=== PATIENT | male | born 1945 | race Caucasian/White ===

== ENCOUNTER 2024-02-12 20:33 | Emergency (ER) | payer MEDICARE, SELFPAY ==
--- NOTE | ~2024-02-12 | CT_ITS ---
EXAMINATION: CT cervical spine wo con DATE: 02/12/2024 21:00 INDICATION: fall TECHNIQUE: Computed tomography (CT) of the cervical spine was performed with 1 intravenous contrast. Automated exposure control and iterative reconstruction technique were employed. The dose-length prod uct was 404.78 mGy-cm. COMPARISON: None. FINDINGS: Vertebral Body Alignment: Intact. i 2 mm retrolisthesis at C3-4, likely on a degenerative basis Craniocervical and atlantoaxial alignment: Moderate degenerative change. Alignment intact. Osseous structures/fracture: No evidence of a lytic or blastic process in the visualized spine. No e vidence of acute fracture. Cervical soft tissues: The paraspinal soft tissues planes are maintained. Degenerative changes: Degenerative changes, without severe neural foraminal or central canal narrowin g. IMPRESSION: No acute fracture or traumatic malalignment in the cervical spine. Reviewed, dictated and finalized at location K.
--- NOTE | ~2024-02-12 | CT_ITS ---
EXAMINATION: CT brain wo con DATE: 02/12/2024 21:00 INDICATION: Fall . TECHNIQUE: Computed tomography (CT) of the head was performed without intravenous contrast. The mA wa s adjusted according to patient size. Iterative reconstruction technique was employed. The dose-lengt h product was 681.00 mGy-cm. COMPARISON: None. FINDINGS: No acute intracranial hemorrhage or extra-axial fluid collection. No hydrocephalus, mass, or herniation. No acute ischemic infarct. Unremarkable dural venous sinus attenuation. No acute osseous abnormality. The aerated spaces are clear. Small posterior scalp hematoma Moderate atrophy and chronic white matter change. Atherosclerotic intracranial calcification. Deep br ain stimulator leads. IMPRESSION: No acute intracranial process. Reviewed, dictated and finalized at location K.
[2024-02-12 20:39] VITALS: BP 149/83; PULSE 82; RESP 16; TEMP 36.5; O2SAT 98
[2024-02-12 23:04] VITALS: BP 165/89; PULSE 75; RESP 24
--- NOTE | 2024-02-12 23:44 | ED.GENADULT ---
HPI - General Adult General Chief complaint: Fall Stated complaint: Fall, hit back of head Time Seen by Provider: 02/12/24 22:40 History of Present Illness HPI narrative: Patient 79-year-old gentleman who presents emergency department with chief complaint of fall. Patient was at a gas station and was going to the bathroom and normally has history of Parkinson's the patient fell struck his head had initial difficulty remembering the incident. The patient reports that does not believe that he had syncope normally has an unsteady gait due to Parkinson's. reports that he has been a little slow in repeating some questions afterwards but denies any new focal neurological deficits. Related Data Allergies Allergy/AdvReac Type Severity Reaction Status Date / Time No Known Allergies Allergy Verified 02/12/24 23:07 Review of Systems Review of Systems: A 10 system review of systems was completed on the patient and is negative except for what is stated in the HPI. Nursing and ancillary documentation was reviewed. Exam Narrative: GENERAL: Well-appearing, well-nourished, and in no acute distress. HEAD: Normocephalic, atraumatic. EYES: PERRLA and EOMI. ENT: Nares clear, no rhinorrhea or epistaxis. Mucous membranes moist. NECK: Supple. CHEST: Clear to auscultation. No respiratory distress. HEART: Regular rate and rhythm. No murmur heard. Normal peripheral pulses. ABDOMEN: Soft, nontender, nondistended, normal active bowel sounds. EXTREMITIES: Normal range of motion. No edema. SKIN: Warm, dry, no rash. NEURO: No focal deficits. Alert and oriented x3. Ambulates with a shuffling parkinsonian gait PSYCH: Normal mood and affect. Course Vital Signs Vital signs: Vital Signs Temperature 36.5 C 02/12/24 20:39 Pulse Rate 82 02/12/24 20:39 Respiratory Rate 16 02/12/24 20:39 Blood Pressure 149/83 H 02/12/24 20:39 Pulse Oximetry 98 02/12/24 20:39 Oxygen Delivery Room Air 02/12/24 20:39 Temperature 36.5 C 02/12/24 20:39 Pulse Rate 75 02/12/24 23:04 Respiratory Rate 24 H 02/12/24 23:04 Blood Pressure 165/89 H 02/12/24 23:04 Pulse Oximetry 98 04/07/24 20:39 Oxygen Delivery Room Air 02/12/24 20:39 Medical Decision Making MDM Narrative Medical decision making narrative: Differential diagnosis includes cervical spine fracture, intracranial injury, concussion, CT head and CT C-spine showed no acute abnormalities. Patient was starting to feel better in the emergency department as repeating less questions this time the patient has no acute intracranial hemorrhage and the patient was able ambulate at his baseline level using a walker. Vital Signs Vital Signs: Vital Signs Temperature 36.5 C 02/12/24 20:39 Pulse Rate 82 02/12/24 20:39 Respiratory Rate 16 02/12/24 20:39 Blood Pressure 149/83 H 02/12/24 20:39 Pulse Oximetry 98 02/12/24 20:39 Oxygen Delivery Room Air 02/12/24 20:39 Temperature 36.5 C 02/12/24 20:39 Pulse Rate 75 02/12/24 23:04 Respiratory Rate 24 H 02/12/24 23:04 Blood Pressure 165/89 H 02/12/24 23:04 Pulse Oximetry 98 02/12/24 20:39 Oxygen Delivery Room Air 02/12/24 20:39 Discharge Plan Discharge Clinical Impression: Head injury, Concussion Patient Disposition: Home, Self-Care Condition: Stable Instructions: Antibiotic Form, Concussion (ED), Head Injury (ED) Follow-up/Referrals: PHYSICIAN NOT ON STAFF,NONSTAFF [Primary Care Provider] - Time of Disposition: 23:46
== END 2024-02-13 00:10 | disposition home or self-care (01) ==
PROVIDERS: Emergency Provider Emergency Medicine
DX: S06.0XAA Concussion with loss of consciousness status unknown, initial encounter (principal); G20.A1 Parkinson's disease without dyskinesia, without mention of fluctuations; W17.89XA Other fall from one level to another, initial encounter
CPT/HCPCS: 70450; 72125; 99284